=== PATIENT | female | born 1955 | race American Indian/Alaskan Native ===

== ENCOUNTER 2017-10-02 13:01 | Outpatient (CLI) | payer MEDICAID ==
--- NOTE | 2017-10-02 14:56 | Mammography Report ---
Ultrasound-guided left breast biopsy and left mammogram: Palpable lump with recent ultrasound and mammogram demonstrating hypoechoic suspicious area in the upper outer left breast. Ultrasound imaging again demonstrated a hypoechoic suspicious area in the 2:00 location. The breast was draped and cleansed. 1% lidocaine used for local anesthesia. A 13-gauge guide was positioned through which a 14-gauge disposable bar biopsied spring-loaded gun was utilized to take several sections through the target under ultrasound guidance. A marker was left in place. The entrance site was bandaged and a two-view mammogram demonstrated that the marker is slightly lateral and above the dense area of microcalcifications. On the initial imaging in 2017 a faint nodular area is consistent with the location of the current marker. There were no patient or technical complications encountered. If the current biopsy is benign it may be discordant with this patient's palpable findings. If this is the case a stereotactic biopsy of the calcifications may be necessary. The current findings and possible need for another biopsy had been thoroughly explained to the patient and her daughter.
--- NOTE | 2017-10-02 15:04 | History and Physical Report ---
History of Present Illness Date of examination: 10/02/17 Chief complaint: palpable lt breast mass History of present illness: recent Medications and Allergies Allergies Allergy/AdvReac Type Severity Reaction Status Date / Time morphine Allergy JAMEL WINSLOW Unverified 09/15/17 08:47 EA
--- NOTE | 2017-10-02 15:06 | Procedure Note ---
Date of procedure: 10/02/17 Pre-op diagnosis: lt breast mass Post-op diagnosis: same Procedure: u/s guided lt breast mass Findings: solid tissue Anesthesia: local Surgeon: ESTELA LASSITER Estimated blood loss: none Pathology: list (lt breast tissue) Specimen disposition: to lab Disposition: same day
== END 2017-10-02 13:02 | disposition home or self-care (01) ==
LOC: SPVWC 13:01
DX: D05.12 Intraductal carcinoma in situ of left breast (principal); Z88.6 Allergy status to analgesic agent
CPT/HCPCS: 19083; 77065; 88305; 88361; A4648

== ENCOUNTER 2017-11-15 12:48 | Outpatient (CLI) | payer MEDICAID ==
--- NOTE | 2017-11-16 16:10 | Magnetic Resonance Report ---
BILATERAL BREAST MRI WITHOUT AND WITH CONTRAST: 11/15/17 12:48:00 CLINICAL: Newly diagnosed left breast cancer. Status post left ultrasound breast biopsy of a 1 cm mass at 2 o'clock 4 cm from the nipple on 10/02/17. 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 No invasive carcinoma identified. COMPARISON:. TECHNIQUE: Axial 1.0-mm T1 without, axial high resolution 2.0-mm T2 and axial 1.0-mm dynamic Vibrant high-resolution postcontrast T1 fat saturation sequences on a 1.5 Darlene magnet. The examination was performed with an 8 channel dedicated [place] breast coil. Post processing with CAD and subtraction was performed on an [employer] workstation. 18.0 cc of Multihance was injected without incident for the contrast portion of the exam. Consent was obtained prior to the administration of the contrast. FINDINGS: Right: Moderate background parenchymal enhancement. No mass or suspicious enhancement. No suspicious right axillary or right internal mammary lymph nodes. Left: Moderate background parenchymal enhancement. An irregular enhancing mass at 2:30 o'clock Center 11.0 cm from the nipple measures 6.3 cm AP dimension by 2.7 cm transverse dimension in the axial plane and there is a larger area of associated non-Mass enhancement surrounding the mass. The non-Mass enhancement and mass together measure 10.5 x 2.9 x 5.0 cm. The mass demonstrates heterogeneous enhancement with mixed kinetics, 357% peak enhancement and 27% type III washout. A hydro-davis biopsy clip is identified at the superior aspect of the mass about midway in the anterior-posterior axis. No other mass or suspicious enhancement of the left breast. No suspicious left axillary or left internal mammary lymph nodes. IMPRESSION: Multicentric left breast cancer measuring 10.5 cm maximum dimension. No suspicious lymph nodes. Negative right breast. LEFT BI-RADS 6 -- Known Cancer RIGHT BI-RADS 1 -- Negative
== END 2017-11-15 12:49 | disposition home or self-care (01) ==
LOC: SPVIMAG 12:48
PROVIDERS: ATTEND Surgery
DX: C50.412 Malignant neoplasm of upper-outer quadrant of left female breast (principal)
CPT/HCPCS: A9577; C8908; 77059

== ENCOUNTER 2017-11-17 15:47 | Outpatient (CLI) | payer OTHER | END 2017-11-17 15:48 | disposition home or self-care (01) | LOC: LABHHL 15:47 | PROVIDERS: ATTEND Surgery | DX: N60.22 Fibroadenosis of left breast (principal); N60.92 Unspecified benign mammary dysplasia of left breast | CPT/HCPCS: 88305 ==

== ENCOUNTER 2018-01-03 10:12 | Day surgery (SDC) | payer MEDICAID, OTHER ==
--- NOTE | 2018-01-01 11:16 | XRay Report ---
CHEST 2 VIEWS INDICATION: Pre surgical. COMPARISON: None similar. FINDINGS: PA and lateral chest radiographs demonstrate normal cardiomediastinal silhouette. Clear lungs. Aortic knob calcifications. Few bony degenerative changes. CONCLUSION: No acute disease in the chest. Thank you for the opportunity to participate in this patient's care.
--- NOTE | 2018-01-01 11:23 | Anesthesia Consultation ---
Anesthesia Consult and Med Hx Date of service: 01/01/18 - Airway Anesthetic Teeth Evaluation: Good ROM Head & Neck: Adequate Mental/Hyoid Distance: Adequate Mallampati Class: Class I Intubation Access Assessment: Good - Pulmonary Exam CTA: Yes - Cardiac Exam Cardiac Exam: RRR - Pre-Operative Health Status ASA Pre-Surgery Classification: ASA2 Proposed Anesthetic Plan: General - Pulmonary SOB: No - Cardiovascular System Hx Hypertension: Yes (SINCE AGE 31) - Central Nervous System Hx Psychiatric Problems: Yes - Other Systems Hx Alcohol Use: No Hx Substance Use: No Hx Cancer: Yes
[~2018-01-03 10:12] MED LIST: LACTATED RINGERS 1,000 ML IV SCH; VERSED IV NR
[2018-01-03 13:35] LABS: Bilirubin,Urine NEG (Negative); Blood,Urine NEG (Negative); Color,Urine Yellow (Yellow); Protein,Urine <15 mg/dL mg/dL (Negative); Urobilinogen,Urine < 2.0 mg/dL (<2.0)
[2018-01-03 13:48] VITALS: BP 121/70
== END 2018-01-03 13:10 | disposition home or self-care (01) ==
LOC: OR 10:12
PROVIDERS: ATTEND Surgery
DX: N64.89 Other specified disorders of breast (principal); I10 Essential (primary) hypertension; E78.00 Pure hypercholesterolemia, unspecified; K21.9 Gastro-esophageal reflux disease without esophagitis; F41.9 Anxiety disorder, unspecified; F32.9 Major depressive disorder, single episode, unspecified; Z98.890 Other specified postprocedural states; Z53.8 Procedure and treatment not carried out for other reasons; Z79.899 Other long term (current) drug therapy
CPT/HCPCS: 71046; 81001; 87086; J7120

== ENCOUNTER 2018-01-31 10:52 | Observation (INO) | payer MEDICAID ==
[2018-01-31] MEDS ORDERED: SUBLIMAZE IV SCH (12:28)
[2018-01-31] MEDS ORDERED: SUBLIMAZE IV PRN (12:28)
[2018-01-31] MEDS ORDERED: DIPRIVAN 10 MG/ML IV ONE (12:41)
[2018-01-31] MEDS ORDERED: SUBLIMAZE ONE ×2 (12:41→16:16)
[2018-01-31] MEDS ORDERED: VERSED ONE (12:41)
[2018-01-31] MEDS ORDERED: NAROPIN O.5% ONE (12:42)
[2018-01-31] MEDS ORDERED: XYLOCAINE MPF 2% ONE (12:47)
[2018-01-31] MEDS ORDERED: QUELICIN ONE (12:50)
[2018-01-31] MEDS ORDERED: LACTATED RINGERS 1,000 ML IV SCH ×2 (13:00→15:00)
[2018-01-31] MEDS ORDERED: VERSED IV NR (13:00)
[2018-01-31] MEDS ORDERED: ANCEF ONE ×2 (13:08→14:35)
[2018-01-31] MEDS ORDERED: NACL 0.9% 1000 ML 2,000 ML ONE (13:08)
[2018-01-31] MEDS ORDERED: BACITRACIN ONE (13:08)
[2018-01-31] MEDS ORDERED: GARAMYCIN ONE (13:09)
[2018-01-31] MEDS ORDERED: METHYLENE BLUE ONE (13:09)
[2018-01-31] MEDS ORDERED: SODIUM CHLORIDE FLUSH SYRINGE 10 ML IV PRN ×2 (14:25→21:36)
[2018-01-31] MEDS ORDERED: FLEXERIL PO PRN (14:25)
[2018-01-31] MEDS ORDERED: REGLAN PO PRN (14:25)
[2018-01-31] MEDS ORDERED: ROXICODONE PO PRN (14:25)
[2018-01-31] MEDS ORDERED: TYLENOL PO PRN ×2 (14:25→21:36)
[2018-01-31] MEDS ORDERED: BENADRYL PO PRN (14:25)
--- NOTE | 2018-01-31 14:33 | Anesthesia Consultation ---
Anesthesia Consult and Med Hx - Airway Anesthetic Teeth Evaluation: Good ROM Head & Neck: Adequate Mallampati Class: Class II Intubation Access Assessment: Good - Pulmonary Exam CTA: Yes - Cardiac Exam Cardiac Exam: RRR - Pre-Operative Health Status ASA Pre-Surgery Classification: ASA3 Proposed Anesthetic Plan: General Nerve Block: pec - Pulmonary SOB: No - Cardiovascular System Hx Hypertension: Yes (SINCE AGE 31) - Central Nervous System Hx Psychiatric Problems: Yes - Other Systems Hx Alcohol Use: No Hx Substance Use: No Hx Cancer: Yes
--- NOTE | 2018-01-31 14:34 | Anesthesia Day of Surgery ---
Anesthesia Day of Surgery - Day of Surgery Patient Examined: Yes Patient H&P Reviewed: Yes Patient is NPO: Yes
[2018-01-31] MEDS ORDERED: ePHEDrine SULFATE ONE (14:35)
[2018-01-31] MEDS ORDERED: ANCEF/STERILE WATER 2 GM/20 ML IV NR (15:00)
[2018-01-31] MEDS ORDERED: ANCEF IV ONE (15:19)
[2018-01-31] MEDS ORDERED: BACITRACIN IR ONE (15:19)
[2018-01-31] MEDS ORDERED: GARAMYCIN IV ONE (15:20)
[2018-01-31] MEDS ORDERED: NACL 0.9% 1000 ML IR ONE (15:21)
--- NOTE | 2018-01-31 18:08 | Operative Report ---
Operative Report Operative Report: Date of service: 01/31/2018 Preoperative diagnosis: Left breast cancer of the upper outer quadrant Postoperative diagnosis: Same Procedure: Right total mastectomy and left total mastectomy with sentinel lymph node biopsy Surgeon: Twyla Oleary M.D. Asst.: Latrice Michele MD Anesthesia: Gen. Findings: Left breast clips present within left total mastectomy. 5 sentinel lymph node identified and negative for malignancy on frozen section of pathology Complications: None Drains: per Plastic Surgery Estimated blood loss: Minimal Disposition: Dr. Hatfield continued with bilateral tissue soiled linen distributor placement Indications for operative procedure: This is a 62-year-old lady with stage 0 left breast cancer of the upper outer quadrant, DCIS [id number]. Recommendations were to proceed with left total mastectomy given multicentric left breast cancer and she wised to proceed with a right total prophylactic mastectomy. Patient wished to proceed with the above procedure and immediate tissue soiled linen distributor placement with plastic reconstructive surgery. Procedure in detail: Anesthesia placed a bilateral pectoral muscle block prior to going to the operating room. The patient was taken to the operating room and was placed supine. Gen. anesthesia was administered. The left nipple was injected with radioisotope. Bilateral breast were prepped and draped in the normal postoperative fashion. Timeout was performed. Mastectomy incision markings were made. Attention was taken towards the right breast first. A skin incision was made with a 10 blade knife and dissection taken down to the subcutaneous tissues. First began raising of the superior flap to the level of the clavicle superiorly and posteriorly to the pectoralis muscle. Followed by raising of the medial flap to the level of the sternum and posteriorly to the pectoralis muscle. Followed by raising of the lateral flap to the level of the latissimus dorsi muscle and taken down posteriorly. Followed by raising of the inferior flap to the level of the inframammary fold taken posterior to the pectoralis muscle. The mastectomy/breast was removed from the pectoralis muscle without incident. The specimen was appropriately marked and sent to pathology. Hemostasis was obtained with the bovie cautery. Attention was taken towards the left breast first. A skin incision was made with a 10 blade knife and dissection taken down to the subcutaneous tissues. First began raising of the superior flap to the level of the clavicle superiorly and posteriorly to the pectoralis muscle. Followed by raising of the medial flap to the level of the sternum and posteriorly to the pectoralis muscle. Followed by raising of the lateral flap to the level of the latissimus dorsi muscle and taken down posteriorly. The gamma probe was inserted into the axilla, axillary fascia was opened and 5 sentinel lymph nodes was identified and all remaining counts were less than 10% of the highest count. Lymph nodes were sent to pathology with findings negative for malignancy noted on frozen section. Then proceeded with raising of the inferior flap to the level of the inframammary fold taken posterior to the pectoralis muscle. The mastectomy/ breast was removed from the pectoralis muscle without incident. The specimen was appropriately marked and sent to radiology with findings of 2 breast clips present and sent to pathology. Hemostasis was obtained with the bovie cautery. Dr. Hatfield then proceeded with bilateral tissue soiled linen distributor placement.
[2018-01-31] MEDS ORDERED: ANCEF/STERILE WATER 2 GM/20 ML 2 GM/20 ML SYRINGE IV ONE (18:12)
[2018-01-31] MEDS ORDERED: PROVENTIL IH ONE (18:39)
[2018-01-31] MEDS ORDERED: S2 RACEPINEPHRINE 2.25% IH ONE ×2 (18:44→18:52)
[2018-01-31] MEDS ORDERED: DECADRON ONE (18:45)
[2018-01-31] MEDS ORDERED: PROAIR IH PRN (18:50)
[2018-01-31] MEDS ORDERED: DECADRON IV ONE (18:51)
[2018-01-31] MEDS ORDERED: PROVENTIL IH PRN (18:56)
[2018-01-31] MEDS ORDERED: VERSED IV PRN (19:15)
[2018-01-31] MEDS: DILAUDID IV PRN ×3 (19:25→20:30)
[2018-01-31] MEDS ORDERED: ROBINUL ONE (19:30)
[2018-01-31] MEDS ORDERED: NEO SYNEPHRINE/NS Syringe(OR USE) IV ONE (19:30)
[2018-01-31] MEDS: ZOFRAN IV PRN (20:25)
[2018-01-31] MEDS ORDERED: XANAX PO PRN (21:21)
[2018-01-31] MEDS ORDERED: NORCO 10/325 PO PRN (21:21)
[2018-01-31] MEDS ORDERED: DILAUDID IV PRN (21:25)
[2018-01-31] MEDS ORDERED: NON-FORMULARY (Topiramate [Topamax] 50 MG) PO SCH (21:30)
[2018-01-31] MEDS ORDERED: NON-FORMULARY (Losartan [Cozaar] 100 MG) PO SCH (21:30)
--- NOTE | 2018-01-31 21:32 | Consultation ---
History of Present Illness - Reason for Consult Consult date: 01/31/18 medical management Requesting physician: MAX BAJWA - History of Present Illness History of present illness: Patient is status post bilateral mastectomy followed by breast reconstruction. I was asked to manage her medical problems. Postop patient is doing reasonably well. In some pain about 6 on 10. Slightly short of breath and anxious. Otherwise doing well. No diaphoresis. Past History Past Medical History: cancer, hypertension Past Surgical History: mastectomy Social history: no significant social history, full code Family history: hypertension Medications and Allergies Allergies Allergy/AdvReac Type Severity Reaction Status Date / Time morphine Allergy JAMEL WINSLOW Verified 01/23/18 15:38 EA Home Medications Medication Instructions Recorded Confirmed Last Taken Type ALPRAZolam [Xanax TAB] 1 mg PO TID PRN 01/23/18 01/23/18 Unknown History Dicyclomine [Bentyl] 10 mg PO QID 01/23/18 01/23/18 Unknown History Estrogen,Con/M-Progest Acet 1 each PO DAILY 01/23/18 01/23/18 Unknown History [Prempro 0.625-2.5 mg Tablet] HYDROcodone/ACETAMINOPHEN 1 each PO Q6H PRN 01/23/18 01/23/18 Unknown History [Hydrocodon-Acetaminophn 10-325] Hydrochlorothiazide [HCTZ] 25 mg PO QDAY 01/23/18 01/23/18 Unknown History Losartan [Cozaar] 100 mg PO QDAY 01/23/18 01/23/18 Unknown History Phentermine HCl 37.5 mg PO QAM 01/23/18 01/23/18 Unknown History Potassium Chloride [K-Dur] 20 meq PO BID 01/23/18 01/23/18 Unknown History Simvastatin [Zocor TAB] 40 mg PO QHS 01/23/18 01/23/18 Unknown History Temazepam 30 mg PO QHS 01/23/18 01/23/18 Unknown History Topiramate [Topamax] 50 mg PO DAILY 01/23/18 01/23/18 Unknown History amLODIPine [Norvasc] 10 mg PO DAILY 01/23/18 01/23/18 Unknown History Active Meds: Active Medications Acetaminophen (Tylenol) 650 mg PO Q6H PRN PRN Reason: Pain MILD(1-3)/Fever >100.5/[place] Acetaminophen/Hydrocodone Bitart (Paia 10/325) 1 each PO Q6H PRN PRN Reason: Pain Albuterol (Proventil) 2.5 mg IH Q4HRT PRN PRN Reason: Shortness Of Breath Alprazolam (Xanax) 1 mg PO TID PRN PRN Reason: Anxiety Amlodipine Besylate (Norvasc) 10 mg PO DAILY ANDERSON Cefazolin Sodium (Ancef/Sterile Water 2 Gm/20 Ml) 2 gm IV PREOP NR Stop: 01/31/18 23:00 Cyclobenzaprine HCl (Flexeril) 5 mg PO Q8H PRN PRN Reason: Muscle Spasm Dicyclomine HCl (Bentyl) 10 mg PO QID ANDERSON Diphenhydramine HCl (Benadryl) 25 mg PO Q8H PRN PRN Reason: Itching Docusate Sodium (Colace) 100 mg PO BID ANDERSON Fentanyl (Sublimaze) 50 mcg IV Q5MIN PRN PRN Reason: Pain , Severe (7-10) Stop: 02/01/18 12:27 Fentanyl (Sublimaze) 100 mcg IV ONCE ANDERSON Stop: 01/31/18 23:00 Last Admin: 01/31/18 13:35 Dose: 50 mcg Gabapentin (Neurontin) 300 mg PO Q8HR ANDERSON Hydrochlorothiazide (Hctz) 25 mg PO QDAY ANDERSON Hydromorphone HCl (Dilaudid) 0.5 mg IV Q10MIN PRN PRN Reason: Pain, Moderate (4-6) Stop: 02/01/18 12:27 Last Admin: 01/31/18 20:30 Dose: 0.5 mg Lactated Ringer's (Lactated Ringers) 1,000 mls @ 42 mls/hr IV DIRECT ANDERSON Last Admin: 01/31/18 13:10 Dose: 42 mls/hr Lactated Ringer's (Lactated Ringers) 1,000 mls @ 125 mls/hr IV DIRECT ANDERSON Cefazolin Sodium (Ancef/Sterile Water 2 Gm/20 Ml) 2 gm in 20 mls @ 120 mls/hr IV Q8H ANDERSON Metoclopramide HCl (Reglan) 10 mg PO Q6H PRN PRN Reason: Nausea And Vomiting Midazolam HCl (Versed) 2 mg IV PREOP NR Stop: 01/31/18 23:59 Last Admin: 01/31/18 13:20 Dose: 2 mg Miscellaneous Medication (Losartan [Cozaar]) 100 mg PO QDAY ANDERSON Miscellaneous Medication (Topiramate [Topamax]) 50 mg PO DAILY ANDERSON Ondansetron HCl (Zofran) 4 mg IV Q8H PRN PRN Reason: N/V unrelieved by Reglan Last Admin: 01/31/18 20:25 Dose: 4 mg Oxycodone HCl (Roxicodone) 5 mg PO Q4H PRN PRN Reason: Pain, Moderate (4-6) Potassium Chloride (K-Dur) 20 meq PO BID ANDERSON Sodium Chloride (Sodium Chloride Flush Syringe 10 Ml) 10 ml IV PRN PRN PRN Reason: LINE FLUSH Review of Systems All systems: negative Exam - Physical Exam Narrative exam: Lying in bed slightly uncomfortable - Constitutional Vitals: Temp Pulse Resp BP Pulse Ox 97.5 F L 74 16 143/77 95 01/31/18 18:34 01/31/18 20:30 01/31/18 20:30 01/31/18 20:30 01/31/18 20:30 General appearance: Present: mild distress, well-nourished - EENT Eyes: Present: PERRL ENT: hearing intact, clear oral mucosa - Neck Neck: Present: supple, normal ROM - Respiratory Respiratory effort: normal Respiratory: bilateral: CTA - Cardiovascular Heart rate: 80 Rhythm: regular Heart Sounds: Present: S1 & S2. Absent: rub, click - Extremities Extremities: pulses symmetrical, No edema Peripheral Pulses: within normal limits - Abdominal General gastrointestinal: Present: soft, non-tender, non-distended, normal bowel sounds Female genitourinary: Present: normal - Integumentary Integumentary: Present: clear, warm, dry - Musculoskeletal Musculoskeletal: gait normal, strength equal bilaterally - Psychiatric Psychiatric: appropriate mood/affect, intact judgment & insight - Neurologic Neurologic: CNII-XII intact, moves all extremities Assessment and Plan - Patient Problems (1) Hypertension Current Visit: Yes Status: Chronic Qualifiers: Hypertension type: essential hypertension Qualified Code(s): I10 - Essential (primary) hypertension Plan to address problem: Continue losartan and hydrochlorothiazide (2) YANA (generalized anxiety disorder) Current Visit: Yes Status: Chronic Plan to address problem: Continue Xanax 3 times a day (3) Pain management Current Visit: Yes Status: Acute Plan to address problem: Dilaudid 1 mg IV every 3 hours when necessary (4) Hyperlipidemia Current Visit: Yes Status: Chronic Qualifiers: Hyperlipidemia type: mixed hyperlipidemia Qualified Code(s): E78.2 - Mixed hyperlipidemia Plan to address problem: We will hold statins for now (5) Insomnia Current Visit: Yes Status: Chronic Qualifiers: Insomnia type: primary Qualified Code(s): F51.01 - Primary insomnia Plan to address problem: Continue temazepam (6) History of mastectomy, total Current Visit: Yes Status: Acute Plan to address problem: Postop care and pain control and dressings (7) DVT prophylaxis Current Visit: Yes Status: Acute Plan to address problem: SCDs for now
[2018-01-31] MEDS ORDERED: ZOFRAN IV PRN (21:36)
[2018-01-31] MEDS ORDERED: SODIUM CHLORIDE FLUSH SYRINGE 10 ML IV SCH (22:00)
[2018-01-31] MEDS ORDERED: NACL 0.9% 1000 ML 1,000 ML IV SCH (22:00)
[2018-01-31] MEDS ORDERED: ceFAZolin 2 GM in NACL 0.9% 100 ML IV SCH (22:00)
--- NOTE | 2018-01-31 23:22 | Operative Report ---
PREOPERATIVE DIAGNOSIS: Left-sided breast cancer. POSTOPERATIVE DIAGNOSIS: Left-sided breast cancer. OPERATIVE PROCEDURE: 1. Bilateral breast reconstruction with implantation of tissue cad manager, CPT code 92624-02. 2. Bilateral breast reconstruction utilizing adjacent tissue transfer to create a dermal sling for implant coverage, total area 100 square cm each side for a total of 200 cm2, CPT code 90007, 81220 x 5. 3. Application of negative pressure wound VAC device, JYOTI to bilateral breasts for postoperative wound healing, CPT code 96962-00. SURGEON: Prudencio Gerardo M.D. MANAGER PARK: None. ANESTHESIA: General. OPERATIVE INDICATIONS: This is a 62-year-old female with multiple medical issues who has a left-sided breast cancer and plan is now to undergo bilateral mastectomy. I saw her in the office and because of her medical issues, we decided to proceed with bilateral tissue cad manager reconstruction and then if she were able to lose weight and get into a better medical situation then we would consider autologous reconstruction down the road as the patient chose. Risks and benefits of surgery were discussed with the patient and she agreed. OPERATIVE DETAILS: After informed consent was obtained, the patient was brought to the operating room and placed supine on the operating room table. Preoperative antibiotics and general anesthesia were administered. The patient was prepped and draped in usual sterile fashion. Timeout was called verifying the patient, operation being performed, side and site of the operation. Dr. Oleary began the procedure. Starting on the right side, performing her mastectomy on the prophylactic side and then she did the left-sided mastectomy and sentinel lymph nodes. She will dictate that portion separately. When I came into the room, the right mastectomy had been completed and there was a defect, status post mastectomy. I had marked the patient for a skin reducing mastectomy, so that was using a Rosa pattern and then because of the extra skin that she have we decided to utilize that for implant coverage and so an inferior dermal based pedicle of the skin was marked and Dr. Oleary elevated that at the flap and preserved that from the reconstruction. I first proceeded with deepithelialization of the inferior dermal pedicle and then additional incision was made in order to allow for augmentation of that pedicle into the mastectomy defect. I then divided the lower border of the pectoralis major muscle and created subpectoral pocket for the tissue cad manager. We then irrigated with triple antibiotic and we took a [place] Patricia high profile 600 mL tissue cad manager and on the right side, serial #[id number] and that was placed in the subpectoral pocket. I then rotated the inferior dermal flap that I created as an adjacent tissue transfer and rotated that into the defect and then sewed the pectoralis major muscle to the flap using 2-0 Vicryl interrupted and running sutures and then secured it laterally along the chest wall and lateral breast border in the same fashion. This now provided total implant coverage. I then placed a 15 and a 19-Croat[place] round David drains for postoperative drainage and then everything was irrigated. Hemostasis was achieved and closure began. We temporarily tailor tacked the Rosa pattern back together and some additional skin was resected due to the laxity. Of note, I placed 300 mL of saline into the tissue cad manager and there was no undue tension on the closure. Closure was performed with 3-0 Monocryl deep dermal and a 3-0 Monocryl running subcuticular for the vertical incision and the horizontal incision was closed using a running 2-0 Monocryl barbed suture. Once we were done with the right side, I moved over to the left side after Dr. Oleary had completed her operation and the same thing was performed on the left. Subpectoral pocket was created and the same tissue cad manager was placed on the left, but the serial number on that was [id number]. A 300 mL of fluid was placed into that cad manager as well. I also deepithelialized the inferior dermal-based flap on the left side. Of note, the size was approximately 10 x 10 cm in size on both sides for a total of 200 cm2 with adjacent tissue transfer. I then made an incision and rotated that flap up into the mastectomy defect and sewed it to the pectoralis major muscle with 2-0 Vicryl sutures and the lateral breast border with 2-0 Vicryl sutures. The total implant coverage placed place a 15 and 19-[place] David drains, achieved hemostasis and irrigated and then tailor tacked the breast close and began with closure with 3-0 Monocryl deep dermals and a 3-0 Monocryl running subcuticular for the vertical and then a 3-0 Monocryl V-Loc barbed suture for the horizontal closure. One other thing of note is during Dr. Oleary's dissection, she over dissected medially on both sides. This created essentially a communication between the left and the right breast pocket disrupting the sternal attachments of the skin, so I did have to repair that using 0 Vicryl interrupted sutures to try to re-tack down the skin back down to the sternum to allow for separate domain of the right and the left breasts. We then took JYOTI negative pressure wound VAC devices and applied one to each breast, centered over the vertical incision in the T junction as the patient was high risk for wound healing complications and we wanted to minimize that. Suction was applied with a good seal. The remainder of the incisions were then covered with Dermabond. The patient was placed into a breast binder, awakened from general anesthesia, transferred to PACU in stable condition. ESTIMATED BLOOD LOSS: Less than 50 mL. FINDINGS: Bilateral breast defect and disruption of the sternal attachments of the overlying skin. JOB# [id number] EMILY/RACQUEL
[2018-01-31] MEDS: NEURONTIN PO SCH (23:29)
[2018-01-31] MEDS: COLACE PO SCH (23:29)
[2018-01-31] MEDS: BENTYL PO SCH (23:29)
[2018-01-31] MEDS: PEPCID PO SCH (23:29)
[2018-01-31] MEDS: K-DUR PO SCH (23:30)
[2018-02-01 00:31] LABS: Hematocrit 35.4 % (30.3-42.9); Hemoglobin 11.6 gm/dl (10.1-14.3); Mean Corpuscular HGB Conc 33 % (30-34); Mean Corpuscular Hemoglobin 28 pg (28-32); Mean Corpuscular Volume 85 fl (79-97); Platelet Count 270 K/mm3 (140-440); Red Blood Count 4.16 M/mm3 (3.65-5.03); Red Cell Distribution Width 13.9 % (13.2-15.2)
[2018-02-01 00:45] LABS: BUN/Creatinine Ratio 23; Blood Urea Nitrogen 18 mg/dL (7-17); Calcium 8.9 mg/dL (8.4-10.2); Hemolysis Index 9
[2018-02-01] MEDS ORDERED: DILAUDID IV PRN ×2 (03:00)
[2018-02-01] MEDS: ANCEF/STERILE WATER 2 GM/20 ML 2 GM/20 ML SYRINGE IV SCH ×3 (03:53→10:21)
[2018-02-01 05:15] LABS: Basophils % (Auto) 0.1 % (0.0-1.8); Hematocrit 33.5 % (30.3-42.9); Hemoglobin 10.9 gm/dl (10.1-14.3); Lymphocytes # (Auto) 0.8 K/mm3 (1.2-5.4); Lymphocytes % (Auto) 4.5 % (13.4-35.0); Mean Corpuscular HGB Conc 32 % (30-34); Mean Corpuscular Hemoglobin 27 pg (28-32); Mean Corpuscular Volume 85 fl (79-97); Monocytes # (Auto) 0.9 K/mm3 (0.0-0.8); Monocytes % (Auto) 5.6 % (0.0-7.3); Platelet Count 267 K/mm3 (140-440); Red Blood Count 3.96 M/mm3 (3.65-5.03); Red Cell Distribution Width 13.6 % (13.2-15.2)
[2018-02-01 05:38] LABS: Alanine Aminotransferase 11 units/L (7-56); Albumin 3.8 g/dL (3.9-5); BUN/Creatinine Ratio 26; Blood Urea Nitrogen 18 mg/dL (7-17); Calcium 8.6 mg/dL (8.4-10.2); Hemolysis Index 0
[2018-02-01 06:14] LABS: Band Neutrophils # (Manual) 2.1 K/mm3; Basophils % (Manual) 0 % (0.0-1.8); Eosinophils % (Manual) 0 % (0.0-4.3); Total Cells Counted 100
[2018-02-01 06:15] LABS: Anisocytosis 1+
[2018-02-01] MEDS: NEURONTIN PO SCH ×2 (06:27→16:23)
[2018-02-01] MEDS: ZOFRAN IV PRN ×2 (06:28→12:34)
[2018-02-01] MEDS ORDERED: COZAAR PO SCH (10:00)
[2018-02-01] MEDS ORDERED: HCTZ PO SCH (10:00)
[2018-02-01] MEDS ORDERED: TOPAMAX PO SCH (10:00)
[2018-02-01] MEDS: BENTYL PO SCH ×2 (10:20→16:23)
[2018-02-01] MEDS: PEPCID PO SCH (10:20)
[2018-02-01] MEDS: K-DUR PO SCH (10:21)
[2018-02-01] MEDS: COLACE PO SCH (10:21)
[2018-02-01] MEDS: NORVASC PO SCH ×2 (10:21)
--- NOTE | 2018-02-01 11:09 | XRay Report ---
Operative left breast specimen: A single tissue specimen is submitted and contains 2 clips centrally and an eccentric area of focal soft tissue density.
--- NOTE | 2018-02-01 17:32 | Discharge Summary ---
Providers - Providers Date of Admission: 01/31/18 14:26 Date of discharge: 02/01/18 Attending physician: MAX BAJWA Primary care physician: ASUNCION BLEVINS Hospitalization Reason for admission: observation due to airway issues Condition: Good Procedures: bilateral mastectomy and tissue building consultant reconstruction Hospital course: Admitted overnight for observation. Patient had some low oxygen sats and history of tracheal stenosis. Next day she was able to wean off of oxygen, ambulate, void and tolerate some food and switch to PO narcotics. Ready for discharge. Disposition: DC- TO HOME OR SELFCARE Core Measure Documentation - Palliative Care Palliative Care/ Comfort Measures: Not Applicable - Core Measures Any of the following diagnoses?: none Exam - Physical Exam Narrative exam: BREASTS: no hematoma, drains serosang. Dressing c/d/i. - Constitutional Vitals: Temp Pulse Resp BP Pulse Ox 97.8 F 65 18 112/66 91 02/01/18 08:00 02/01/18 07:36 02/01/18 08:00 02/01/18 08:00 02/01/18 11:25 Plan Follow up with: ASUNCION BLEVINS [employer] [Primary Care Provider] - 7 Days
[2018-02-01 17:38] VITALS: BP 134/85
== END 2018-02-01 20:34 | disposition home or self-care (01) ==
LOC: OR 10:52 → OB 14:26 → 3B-SURG 22:14
PROVIDERS: ADMIT Surgery; ATTEND Surgery
DX: C50.912 Malignant neoplasm of unspecified site of left female breast (principal)
CPT/HCPCS: 19307; 36415; 64450; 76098; 78800; 80048; 80053; 83036; 85007; 85025; 88307; 88309; 88331; 88333; 88342; 94760; 96374; 96375; 96376; A9541; C1789; G0378; J0330; J0690; J1100; J1170; J1580; J2250; J2370; J2405; J2704; J2795; J2930; J3010; J7030; J7120; Q9968; J2920